=== PATIENT | female | born 1990 | race Caucasian/White ===

== ENCOUNTER 2017-10-01 11:40 | Day surgery (SDC) | payer MEDICAID ==
[~2017-10-01 11:40] MED LIST: LIDOCAINE 2% (SDV) 5 ML INJ
[2017-10-01 12:02] LABS: ADD MAN DIFF? NO
[2017-10-01] MEDS: SOD CHLORIDE 0.9% 1,000 ML IV (12:04)
[2017-10-01 12:08] LABS: BASOPHIL # 0.1 10^3/ul (0.0-0.1); BASOPHILS % 0.5 % (0.0-2.0); EOSINOPHILS # 0.1 10^3/ul (0.0-0.5); EOSINOPHILS % 1.2 % (0.0-7.0); HEMATOCRIT 31.5 % (37.0-47.0); LYMPHOCYTES % 27.5 % (15.0-51.0); MEAN CORPUSCULAR HEMOGLOBIN 31.9 pg (29.0-33.0); MEAN CORPUSCULAR HGB CONC 34.9 g/dl (32.0-37.0); MEAN CORPUSCULAR VOLUME 91.3 fl (82.0-101.0); MEAN PLATELET VOLUME 9.2 fl (7.4-10.4); MONOCYTE # 1.2 10^3/ul (0.3-0.9); MONOCYTES % 11.1 % (0.0-11.0); NEUTROPHIL # 6.4 10^3/ul (1.6-7.5); NEUTROPHILS % 58.8 % (39.0-77.0); PLATELET COUNT 273 10^3/UL (140-415); RED BLOOD COUNT 3.45 10^6/ul (4.20-5.40); RED CELL DISTRIBUTION WIDTH 12.6 % (11.5-14.5)
[2017-10-01 12:08] LABS: WHITE BLOOD COUNT 10.9 10^3/ul (4.8-10.8)
[2017-10-01 12:28] LABS: ANION GAP 13 (8-16); BLOOD UREA NITROGEN 16 mg/dl (7-20); CALCIUM 9.6 mg/dl (8.4-10.2); CARBON DIOXIDE 27 mmol/L (21-31); CHLORIDE 104 mmol/L (97-110); GLUCOSE 108 mg/dl (70-220); SODIUM 140 mmol/L (135-144)
[2017-10-01 12:32] LABS: ADD UMIC YES; UR ASCORBIC ACID NEGATIVE (NEGATIVE); UR BACTERIA MODERATE /HPF (NONE SEEN); UR BILIRUBIN (Dip) NEGATIVE (NEGATIVE); UR BLOOD (Dip) 3+ mg/dL (NEGATIVE); UR CALCIUM OXALATE CRYSTAL FEW /HPF (NONE SEEN); UR CLARITY CLOUDY (CLEAR); UR COLOR YELLOW (YELLOW); UR GLUCOSE (Dip) NEGATIVE (NEGATIVE); UR KETONES (Dip) NEGATIVE (NEGATIVE); UR LEUKOCYTE ESTERASE (Dip) 2+ Leu/ul (NEGATIVE); UR MUCUS MANY /HPF (NONE SEEN); UR NITRITE (Dip) NEGATIVE (NEGATIVE); UR RBC 30 /HPF (0-5); UR SPECIFIC GRAVITY (Dip) 1.024 (1.003-1.030); UR SQUAMOUS EPITHELIAL CELL MODERATE /HPF (FEW); UR TOTAL PROTEIN (Dip) 1+ mg/dl (NEGATIVE); UR UROBILINOGEN (Dip) 1+ mg/dL (NEGATIVE); UR WBC 66 /HPF (0-5)
[2017-10-01 12:42] LABS: TROPONIN-I < 0.012 ng/ml (0.000-0.120)
[2017-10-01 16:03] LABS: INR 1.04; PROTIME 13.7 Sec (11.9-14.9); PT RATIO 1.1
[2017-10-01] MEDS: CEFTRIAXONE 1 GM/50 ML (PMX) 50 ML IVPB (16:15)
[2017-10-01] MEDS ORDERED: FENTAnyl 50 MCG/ML VIAL ×2 (17:18→17:26)
[2017-10-01] MEDS ORDERED: OXYTOCIN 10 UNIT INJ (17:39)
[2017-10-01] MEDS ORDERED: PROPOFOL 20 ML ×2 (17:40)
[2017-10-01] MEDS ORDERED: MIDAZOLAM 1 MG/ML 2 ML INJ IV (18:00)
[2017-10-01] MEDS ORDERED: KETOROLAC 30 MG INJ IV (18:00)
[2017-10-01] MEDS ORDERED: ALBUTEROL 0.083% (NEB) 2.5 MG/3 ML AMP HHN (18:00)
[2017-10-01] MEDS ORDERED: LABETALOL HCL 20MG INJ IV (18:00)
[2017-10-01] MEDS ORDERED: EPHEDrine SULFATE 50 MG/5 ML SYG IV (18:00)
[2017-10-01] MEDS ORDERED: ONDANSETRON 4 MG INJ IV (18:00)
[2017-10-01] MEDS ORDERED: FENTAnyl 50 MCG/ML VIAL IV ×3 (18:00)
[2017-10-01] MEDS ORDERED: HYDROmorphONE (0.2 MG/ML) 10ML SYG IV ×2 (18:00)
[2017-10-01] MEDS ORDERED: METOCLOPRAMIDE 10 MG INJ IV (18:00)
[2017-10-01] MEDS ORDERED: DIPHENHYDRAMINE 50 MG INJ IV (18:00)
[2017-10-01] MEDS ORDERED: hydrALAzine 20 MG INJ IV (18:00)
[2017-10-01] MEDS ORDERED: OXYCODONE/ACETAMINOPHEN (5/325) TAB PO ×2 (18:00)
[2017-10-01] MEDS ORDERED: MEPERIDINE 25 MG INJ (18:05)
[2017-10-01] MEDS: MEPERIDINE 25 MG INJ IV (18:05)
== END 2017-10-01 19:18 | disposition home or self-care (01) ==
LOC: E/R 11:40 → SUR 16:41
DX: O03.4 Incomplete spontaneous abortion without complication (principal)
CPT/HCPCS: 36415; 59812; 71045; 76856; 80048; 81001; 84484; 84702; 84703; 85025; 85610; 86900; 86901; 88305; 93005; 96374; 99285-25